=== PATIENT | female | born 1945 | race African-American/Black ===

== ENCOUNTER 2016-09-18 11:09 | Emergency (ER) | payer OTHER ==
[~2016-09-18] VITALS: Ht 157.5 cm; Wt 65.8 kg
[2016-09-18 11:22] VITALS: BP 121/78
== END 2016-09-18 16:34 | disposition left against medical advice (07) ==
LOC: ER 11:13
DX: R07.9 Chest pain, unspecified (principal); M54.2 Cervicalgia; M79.602 Pain in left arm; Z53.21 Procedure and treatment not carried out due to patient leaving prior to being seen by health care provider
CPT/HCPCS: 93005